=== PATIENT | female | born 1930 | race Caucasian/White ===

== ENCOUNTER 2017-10-07 18:24 | Inpatient (IN) | payer OTHER ==
[~2017-10-07] VITALS: Ht 160 cm; Wt 39.0 kg
[2017-10-07 18:33] VITALS: Ht 160 cm; Wt 39.0 kg
[2017-10-07 20:00] LABS: BASOPHIL % 0.4 % (0-2)
[2017-10-07 20:07] LABS: CALCIUM 9.5 mg/dL (8.5-10.1); CARBON DIOXIDE 28.5 mmol/L (21-32); CHLORIDE SERUM 101 mmol/L (98-107); CREATININE SERUM 0.8 mg/dL (0.6-1.0); GLUCOSE SERUM 107 mg/dL (74-106); POTASSIUM SERUM 4.5 mmol/L (3.5-5.1); SODIUM SERUM 136 mmol/L (136-145)
[2017-10-07 20:13] LABS: ALKALINE PHOSPHATASE 136 U/L (46-116); ALT/SGPT 51 U/L (14-59); AST/SGOT 45 U/L (15-37); BILIRUBIN TOTAL 0.51 mg/dL (0.20-1.00); CHOLESTEROL 145 mg/dL (<200); TOTAL PROTEIN, SERUM 7.9 g/dL (6.4-8.2)
[2017-10-07 20:15] LABS: ALBUMIN 2.5 g/dL (3.4-5.0); HDL CHOLESTEROL 32 mg/dL (40-60)
[2017-10-07 20:19] LABS: PLATELET COUNT 532 x10^3mcL (130-400); RED CELL DISTRIBUTION WIDTH 16.4 % (11.5-14.5)
[2017-10-07 20:38] LABS: microscopic required? YES; urine erythrocyte TRACE (NEGATIVE)
[2017-10-07 21:05] LABS: MAGNESIUM 2.2 mg/dL (1.8-2.4); PHOSPHOROUS 3.1 mg/dL (2.5-4.9)
[2017-10-07 21:13] LABS: T3 TOTAL 0.95 ng/mL
[2017-10-07 21:15] LABS: FREE T4 1.13 ng/dL (0.76-1.46); FREE THYROXINE INDEX 2.7 ug/dL (1.4-4.5); T4(THYROXINE) 7.6 ug/dL (4.7-13.3)
[2017-10-07 23:36] VITALS: BP 135/73
[2017-10-08 05:39] VITALS: BP 115/45
[2017-10-08 06:25] LABS: CALCIUM 8.8 mg/dL (8.5-10.1); CHLORIDE SERUM 105 mmol/L (98-107); CREATININE SERUM 0.7 mg/dL (0.6-1.0); GLUCOSE SERUM 93 mg/dL (74-106); POTASSIUM SERUM 3.9 mmol/L (3.5-5.1); SODIUM SERUM 138 mmol/L (136-145)
[2017-10-08 06:39] LABS: BASOPHIL % 0.5 % (0-2)
[2017-10-08 06:52] LABS: PLATELET COUNT 456 x10^3mcL (130-400); RED CELL DISTRIBUTION WIDTH 16.3 % (11.5-14.5)
[2017-10-08 08:11] VITALS: BP 113/37
[2017-10-08] MEDS ORDERED: NATURAL ZINC1 TAB PO (09:17)
[2017-10-08] MEDS ORDERED: NOR5 PO (09:20)
[2017-10-08] MEDS ORDERED: MULTI-VITAMINS1 TAB PO (09:20)
[2017-10-08 12:26] VITALS: BP 117/41
[2017-10-08 16:33] VITALS: BP 138/58
[2017-10-08 21:47] VITALS: BP 154/71
[2017-10-09 05:18] VITALS: BP 121/57
[2017-10-09 06:05] LABS: CALCIUM 8.7 mg/dL (8.5-10.1); CARBON DIOXIDE 28.2 mmol/L (21-32); CHLORIDE SERUM 106 mmol/L (98-107); CREATININE SERUM 0.7 mg/dL (0.6-1.0); GLUCOSE SERUM 92 mg/dL (74-106); SODIUM SERUM 141 mmol/L (136-145)
[2017-10-09 07:00] LABS: BASOPHIL % 0.8 % (0-2)
[2017-10-09 07:14] LABS: PLATELET COUNT 467 x10^3mcL (130-400); RED CELL DISTRIBUTION WIDTH 16.1 % (11.5-14.5)
[2017-10-09 09:15] VITALS: BP 100/40
[2017-10-09 13:30] VITALS: BP 110/52
[2017-10-09] MEDS ORDERED: ZOS3PM IV (14:31)
[2017-10-09] MEDS ORDERED: PROT40I IV (14:32)
[2017-10-09] MEDS ORDERED: LAC PO (15:27)
[2017-10-09 17:26] VITALS: BP 150/84
[2017-10-09 17:37] VITALS: BP 151/61
[2017-10-09 20:25] VITALS: BP 149/69
== END 2017-10-09 21:21 | disposition home health service (06) | DRG 720 ==
LOC: ED 18:24 → DU 20:23
PROVIDERS: Emergency Medicine; Family Medicine
DX: A41.9 Sepsis, unspecified organism (principal); E43 Unspecified severe protein-calorie malnutrition; L89.219 Pressure ulcer of right hip, unspecified stage; L89.229 Pressure ulcer of left hip, unspecified stage; N39.0 Urinary tract infection, site not specified; G30.9 Alzheimer's disease, unspecified; M62.82 Rhabdomyolysis; F02.80 Dementia in other diseases classified elsewhere, unspecified severity, without behavioral disturbance, psychotic disturbance, mood disturbance, and anxiety; D64.9 Anemia, unspecified; M46.28 Osteomyelitis of vertebra, sacral and sacrococcygeal region; R62.7 Adult failure to thrive; M85.88 Other specified disorders of bone density and structure, other site; Z68.1 Body mass index [BMI] 19.9 or less, adult
CPT/HCPCS: 83880; 84439; C1751; J1956; J2543; J7030; Q0092

== ENCOUNTER 2018-02-15 11:00 | Inpatient (IN) | payer OTHER ==
[~2018-02-15] VITALS: Ht 160 cm; Wt 45.9 kg
[~2018-02-15 11:00] MED LIST: LAC PO; MULTI-VITAMINS1 TAB PO; NATURAL ZINC1 TAB PO; NOR5 PO; PROT40I IV; ZOS3PM IV
[2018-02-15 11:05] VITALS: Ht 160 cm; Wt 45.9 kg
[2018-02-15 12:29] LABS: BASOPHIL % 1.1 % (0-2)
[2018-02-15 12:34] LABS: CALCIUM 9.5 mg/dL (8.5-10.1); CARBON DIOXIDE 22.9 mmol/L (21-32); CHLORIDE SERUM 107 mmol/L (98-107); CREATININE SERUM 0.8 mg/dL (0.6-1.0); GLUCOSE SERUM 113 mg/dL (74-106); POTASSIUM SERUM 3.8 mmol/L (3.5-5.1); SODIUM SERUM 142 mmol/L (136-145)
[2018-02-15 12:38] LABS: ALBUMIN 3.4 g/dL (3.4-5.0); ALKALINE PHOSPHATASE 124 U/L (46-116); ALT/SGPT 20 U/L (14-59); AST/SGOT 21 U/L (15-37); BILIRUBIN TOTAL 0.74 mg/dL (0.20-1.00)
[2018-02-15 12:39] LABS: TOTAL PROTEIN, SERUM 8.6 g/dL (6.4-8.2)
[2018-02-15 12:41] LABS: PLATELET COUNT 413 x10^3mcL (130-400); RED CELL DISTRIBUTION WIDTH 20.6 % (11.5-14.5)
[2018-02-15 13:17] LABS: microscopic required? YES; urine erythrocyte 2+ (NEGATIVE)
[2018-02-15 16:28] VITALS: BP 166/74
[2018-02-15 20:14] VITALS: BP 187/94
[2018-02-15 23:02] VITALS: BP 147/60
[2018-02-16 05:51] VITALS: BP 152/70
[2018-02-16 06:39] LABS: CALCIUM 8.7 mg/dL (8.5-10.1); CARBON DIOXIDE 19.3 mmol/L (21-32); CHLORIDE SERUM 108 mmol/L (98-107); CREATININE SERUM 0.5 mg/dL (0.6-1.0); GLUCOSE SERUM 89 mg/dL (74-106); MAGNESIUM 1.8 mg/dL (1.8-2.4); SODIUM SERUM 139 mmol/L (136-145)
[2018-02-16 09:46] VITALS: BP 140/47
[2018-02-16 16:21] VITALS: BP 150/67
[2018-02-16 20:57] VITALS: BP 150/67
[2018-02-17 05:58] VITALS: BP 159/84
[2018-02-17 06:14] LABS: BASOPHIL % 0.6 % (0-2); PLATELET COUNT 327 x10^3mcL (130-400)
[2018-02-17 06:21] LABS: RED CELL DISTRIBUTION WIDTH 20.1 % (11.5-14.5)
[2018-02-17 06:29] LABS: CALCIUM 8.8 mg/dL (8.5-10.1); CARBON DIOXIDE 20.8 mmol/L (21-32); CHLORIDE SERUM 113 mmol/L (98-107); CREATININE SERUM 0.6 mg/dL (0.6-1.0); GLUCOSE SERUM 88 mg/dL (74-106); MAGNESIUM 1.8 mg/dL (1.8-2.4); POTASSIUM SERUM 3.8 mmol/L (3.5-5.1); SODIUM SERUM 146 mmol/L (136-145)
[2018-02-17 08:08] VITALS: BP 173/76
[2018-02-17 09:10] VITALS: BP 142/59
[2018-02-17 12:04] VITALS: BP 139/60
[2018-02-17 12:13] LABS: rbc morphology (normal/abnorm) ABNORMAL (NORMAL)
[2018-02-17 12:15] LABS: burr cell (echinocyte) 1+; ovalocyte/elliptocyte 1+; tear drop cell (dacryocyte) 1+
[2018-02-17 13:14] VITALS: BP 139/60
== END 2018-02-17 19:14 | DRG 463 ==
LOC: ED 11:00 → MU 14:53
PROVIDERS: Emergency Medicine; Internal Medicine
DX: N39.0 Urinary tract infection, site not specified (principal); B96.89 Other specified bacterial agents as the cause of diseases classified elsewhere; G30.9 Alzheimer's disease, unspecified; R47.01 Aphasia; F02.80 Dementia in other diseases classified elsewhere, unspecified severity, without behavioral disturbance, psychotic disturbance, mood disturbance, and anxiety; I10 Essential (primary) hypertension; Z74.01 Bed confinement status
CPT/HCPCS: J0696; J1644; J3480; J7030; Q0092

== ENCOUNTER 2018-02-20 07:52 | Inpatient (IN) | payer OTHER ==
[~2018-02-20] VITALS: Ht 160 cm; Wt 47.4 kg
[2018-02-20 08:35] LABS: PLATELET COUNT 371 x10^3mcL (130-400)
[2018-02-20 08:36] LABS: RED CELL DISTRIBUTION WIDTH 20.1 % (11.5-14.5)
[2018-02-20 08:46] LABS: UA SPECIFIC GRAVITY 1.025 (1.005-1.035); microscopic required? YES; urine erythrocyte 1+ (NEGATIVE)
[2018-02-20 08:46] LABS: CALCIUM 9.1 mg/dL (8.5-10.1); CARBON DIOXIDE 25.9 mmol/L (21-32); CHLORIDE SERUM 107 mmol/L (98-107); CREATININE SERUM 0.7 mg/dL (0.6-1.0); GLUCOSE SERUM 135 mg/dL (74-106); POTASSIUM SERUM 3.5 mmol/L (3.5-5.1); SODIUM SERUM 141 mmol/L (136-145)
[2018-02-20 08:57] LABS: ALKALINE PHOSPHATASE 106 U/L (46-116); ALT/SGPT 22 U/L (14-59); AST/SGOT 21 U/L (15-37); BILIRUBIN TOTAL 0.9 mg/dL (0.20-1.00); TOTAL PROTEIN, SERUM 8.1 g/dL (6.4-8.2)
[2018-02-20 08:59] LABS: CK-MB < 0.5 ng/mL (0-3.6); CREATINE KINASE 44 U/L (26-192)
[2018-02-20] MEDS ORDERED: INVANZ1 GM IV (09:02)
[2018-02-20] MEDS ORDERED: NOR10 PO (09:02)
[2018-02-20 10:28] LABS: BAND NEUTROPHIL 3 % (0-10); BASOPHIL 1 % (0-2); MONOCYTE 1 % (0-7); SEGMENTED NEUTROPHILS 90 % (37-75)
[2018-02-20 10:30] LABS: PLATELET MORPHOLOGY PLATELETS NORMAL; rbc morphology (normal/abnorm) ABNORMAL (NORMAL)
[2018-02-20 13:53] VITALS: BP 113/59
[2018-02-20 14:06] VITALS: BP 135/65
[2018-02-20 16:20] VITALS: BP 143/75
[2018-02-20 20:15] VITALS: BP 123/64
[2018-02-20 23:29] VITALS: BP 137/73
[2018-02-21 05:34] LABS: PLATELET COUNT 313 x10^3mcL (130-400)
[2018-02-21 05:35] LABS: RED CELL DISTRIBUTION WIDTH 19.8 % (11.5-14.5)
[2018-02-21 05:39] LABS: CALCIUM 9.2 mg/dL (8.5-10.1); CARBON DIOXIDE 26.5 mmol/L (21-32); CHLORIDE SERUM 112 mmol/L (98-107); CREATININE SERUM 0.8 mg/dL (0.6-1.0); GLUCOSE SERUM 148 mg/dL (74-106); MAGNESIUM 1.9 mg/dL (1.8-2.4); POTASSIUM SERUM 3.1 mmol/L (3.5-5.1); SODIUM SERUM 147 mmol/L (136-145)
[2018-02-21 08:26] VITALS: Ht 160 cm; Wt 47.4 kg
[2018-02-21 08:30] VITALS: BP 147/73
[2018-02-21 10:07] LABS: ATYPICAL LYMPH 1 %; BAND NEUTROPHIL 3 % (0-10); BASOPHIL 0 % (0-2); MONOCYTE 5 % (0-7); SEGMENTED NEUTROPHILS 87 % (37-75)
[2018-02-21 10:09] LABS: PLATELET MORPHOLOGY PLATELETS INCREASED; rbc morphology (normal/abnorm) ABNORMAL (NORMAL)
[2018-02-21 12:43] VITALS: BP 159/91
[2018-02-21 15:10] VITALS: BP 165/76
[2018-02-21 19:40] VITALS: BP 154/83
[2018-02-21 23:40] VITALS: BP 163/79
[2018-02-22 03:32] VITALS: BP 167/83
[2018-02-22 05:16] LABS: BASOPHIL % 0.2 % (0-2); PLATELET COUNT 238 x10^3mcL (130-400)
[2018-02-22 05:24] LABS: CARBON DIOXIDE 22.6 mmol/L (21-32); CHLORIDE SERUM 110 mmol/L (98-107); CREATININE SERUM 0.5 mg/dL (0.6-1.0); GLUCOSE SERUM 132 mg/dL (74-106); MAGNESIUM 1.6 mg/dL (1.8-2.4); POTASSIUM SERUM 3.2 mmol/L (3.5-5.1); SODIUM SERUM 142 mmol/L (136-145)
[2018-02-22 05:43] LABS: RED CELL DISTRIBUTION WIDTH 20.2 % (11.5-14.5)
[2018-02-22 08:04] VITALS: BP 175/82
[2018-02-22 11:23] VITALS: BP 137/64
[2018-02-22 15:03] VITALS: BP 114/76
[2018-02-22 19:05] VITALS: BP 160/73
[2018-02-22 23:24] VITALS: BP 118/64
[2018-02-23 03:06] VITALS: BP 123/60
[2018-02-23 04:53] LABS: BASOPHIL % 0.1 % (0-2); PLATELET COUNT 305 x10^3mcL (130-400)
[2018-02-23 04:55] LABS: RED CELL DISTRIBUTION WIDTH 20.1 % (11.5-14.5)
[2018-02-23 04:58] LABS: CALCIUM 8.7 mg/dL (8.5-10.1); CARBON DIOXIDE 25.1 mmol/L (21-32); CHLORIDE SERUM 108 mmol/L (98-107); CREATININE SERUM 0.5 mg/dL (0.6-1.0); GLUCOSE SERUM 111 mg/dL (74-106); MAGNESIUM 1.8 mg/dL (1.8-2.4); SODIUM SERUM 139 mmol/L (136-145)
[2018-02-23 08:00] VITALS: BP 113/54
[2018-02-23 11:10] VITALS: BP 128/59
[2018-02-23 14:20] VITALS: BP 128/59
[2018-02-23 15:18] VITALS: BP 121/62
== END 2018-02-23 23:45 | disposition expired | DRG 720 ==
LOC: ED 07:52 → IC 10:57
PROVIDERS: Emergency Medicine; Internal Medicine Pulmonary Disease
PROC: 5A09357 Assistance with Respiratory Ventilation, Less than 24 Consecutive Hours, Continuous Positive Airway Pressure (ICD-10-PCS; principal; 2018-02-20)
DX: A41.9 Sepsis, unspecified organism (principal); J96.01 Acute respiratory failure with hypoxia; J69.0 Pneumonitis due to inhalation of food and vomit; R53.2 Functional quadriplegia; R13.10 Dysphagia, unspecified; R65.20 Severe sepsis without septic shock; G30.9 Alzheimer's disease, unspecified; F02.80 Dementia in other diseases classified elsewhere, unspecified severity, without behavioral disturbance, psychotic disturbance, mood disturbance, and anxiety; Z66 Do not resuscitate; N39.0 Urinary tract infection, site not specified; Z87.440 Personal history of urinary (tract) infections
CPT/HCPCS: 36600; 83880; J0360; J1644; J2270; J2543; J3370; J3475; J3480; J3490; J7042; Q0092; Q9967